=== PATIENT | female | born 1990 | race Caucasian/White ===

== ENCOUNTER → 2021-01-25 17:22 | Outpatient (CLI) | payer OTHER, SELFPAY ==
[2021-01-25 19:17] LABS: HCG Quantitative /Beta subunit 23679 mIU/mL
== END ==
PROVIDERS: PCP Registered Nurse Diabetes Educator; Referring Provider Obstetrics & Gynecology; Visit Provider Obstetrics & Gynecology
DX: O02.0 Blighted ovum and nonhydatidiform mole (principal)
CPT/HCPCS: 36415; 84702

== ENCOUNTER → 2021-01-27 16:45 | Outpatient (CLI) | payer OTHER, SELFPAY ==
[2021-01-27 18:17] LABS: HCG Quantitative /Beta subunit 18959 mIU/mL
== END ==
PROVIDERS: PCP Registered Nurse Diabetes Educator; Referring Provider Obstetrics & Gynecology; Visit Provider Obstetrics & Gynecology
DX: Z34.90 Encounter for supervision of normal pregnancy, unspecified, unspecified trimester (principal)
CPT/HCPCS: 36415; 84702

== ENCOUNTER → 2021-02-01 16:35 | Outpatient (CLI) | payer OTHER, SELFPAY | PROVIDERS: PCP Registered Nurse Diabetes Educator; Referring Provider Obstetrics & Gynecology; Visit Provider Obstetrics & Gynecology | DX: Z34.01 Encounter for supervision of normal first pregnancy, first trimester (principal) | CPT/HCPCS: 36415; 86850; 86900; 86901 ==

== ENCOUNTER 2022-05-17 00:44 | Inpatient (IN) | payer OTHER, SELFPAY ==
--- NOTE | 2022-05-17 01:28 | P.HPOB_ITS ---
OB HPI Date/Time Date of admission: 05/17/22 Date Patient Seen: 05/17/22 Time Patient Seen: 01:28 History of Present Condition Chief complaint: LABOR : 1 Para: 0 Estimated Date of Delivery: 05/22/22 Estimated Gestational Age (weeks): 39.2 Narrative: Miesha Sethi is a 31 year old female @ [id number] by 7wk US presents for evaluation f labor. Contractions started last night and have steadily increased in frequency and intensity. Now Q2-3 minutes and strong. Coping well. +FM. No vaginal bleeding or leaking of fluid. Uncomplicated care with CNM. Chronic anxiety and depression well managed with Wellbutrin. Desires low intervention . and sporting goods sales associate are present and supportive. History of Present care: good care, initiated at week # (7), number of visits (10) and pounds weight gain (36) Dating criteria: based on 1st trimester US only Ultrasounds: normal mid trimester US Obstetrical complications: none Medical complications: none Preadmission Labs Blood type: A (+) positive -: Antibody screen: negative, GBS status: positive, HBsAG: negative, HIV: negative and RPR/VDLR: negative -: Chlamydia screen: not detected and Gonorrhea screen: not detected -: Rubella: immune and Varicella: immune HCT: 36.3 HCAB: negative Cell-free DNA: Negative 1 hr GTT: 101 Evaluation Evaluation Baseline heart rate: 135 Variability: Moderate (11-25) monitor accelerations: Present Monitor Decelerations: Absent Contraction Frequency (minutes): 3 Uterine Contraction Intensity: Moderate Status: Category l Dilation (cm): 6 Effacement (%): 100 Dilation: >/=5 cm Effacement: >/=80% station: -1 Position of cervix: mid Consistency: soft Toussaint score: 11 [facility] Medical History Anxiety (~2007) Chronic back pain (~2012) Depression (~2007) Dyspareunia (~2008) Fibromyalgia (~2012) Frequent UTI (~2008) GERD (gastroesophageal reflux disease) (~2007) IBS (irritable bowel syndrome) (~2007) Migraines (~2010) Pelvic floor dysfunction (~2007) Seasonal allergies (~2005) Urinary urgency (~2008) Vaginitis Surgical History Gustine teeth extracted (~2009) Family History Mother labor in second trimester with delivery in third trimester Depression Father No problems noted. Grandmother Hypertension Pacemaker labor in second trimester with delivery in third trimester Grandfather Hemorrhagic stroke Grandmother No problems noted. Grandfather Bone cancer Pneumonia Stroke Hypertension Social History marital status: number of children: 0 household members: spouse lives independently: Yes caregiver/support person: No housing: house pets and animals: Yes (2 cats: cleaning litter box, aware. 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 ) shereen/confucianism: Non-roman catholic special shereen needs: No leisure activities: other (painting, sewing, art.) seatbelt use: always water heater temp set < 120 deg: Yes working smoke detector in home: Yes fire extinguisher in home: No carbon monox detector in home: Yes firearms in home: Yes firearms unloaded and locked: Yes do you feel safe at home: Yes Smoking Status: Never smoker second hand exposure: No alcohol intake: never (Does not drink, seems to not mix with Wellbutrin. ) substance use type: does not use during the past year weight has: decreased > 10 lbs well-balanced diet: about half the time daily servings fruits/ve-4 caffeine: Yes (Quit - just doing decaf. ) Type(s) of exercise: walking and other ( pilates DVD once a week. Stretches from PT. ) frequency: 3-4 times per week duration: 15-30 minutes/day Meds Home Medications and Allergies Home Medications Medication Instructions Recorded Confirmed Type lactobacillus combo no.13 1 1 cap PO DAILY 10/07/20 01/11/22 History billion cell capsule,delayed release (Probiotic Pearls Complete) calcium carbonate 300 mg (750 mg) 300 mg PO BID 01/08/21 01/11/22 History chewable tablet (Tums) prenat.vits,camila,vuv-mfuk-tymwh 1 tab PO DAILY 01/08/21 01/11/22 History bupropion HCl 150 mg 24 hr tablet, 150 mg PO QAM #90 tabs 01/11/22 01/11/22 Rx extended release cimetidine 200 mg tablet (Tagamet 200 mg PO QAC PRN 01/11/22 01/11/22 History HB) Allergies Allergy/AdvReac Type Severity Reaction Status Date / Time house dust mite Allergy Intermediate sinus Verified 01/11/22 13:35 infections venom-wasp Allergy Intermediate Swelling, Verified 01/11/22 13:35 no anaphylaxis. grass pollen Allergy Mild Itchy eyes Verified 01/11/22 13:35 Review of Systems Review of Systems ROS: Yes All systems reviewed with the patient and are negative except as otherwise documented OB Exam Narrative Exam Narrative: VS: BP 145/87, HR 107bpm, T 36.4C Temporal Resp Effort & Inspection: normal respiratory effort and able to speak in complete sentences Auscultation: clear to auscultation bilaterally Cardio Rate: regular rate Rhythm: regular rhythm Presentation: vertex Assessment and Plan Assessment and Plan Assessment and Plan narrative: A: Term nullipara Active labor GBS prophylaxis indicated Cat I FHR P: Admit, routine orders with ampicillin for GBS prophylaxis. Labor support PRN. Reassess in 4 hours or sooner, PRN.
[2022-05-17] MEDS: AMPICILLIN 2,000 MG in SODIUM CHLORIDE 0.9% 100 ML 200 MG IV (01:36)
[2022-05-17] MEDS: LACTATED RINGERS 1,000 ML 100 ML IV ×2 (01:36→15:21)
[2022-05-17 01:41] LABS: Add Manual Diff / Slide Review NO; Basophils Absolute Auto 100 /uL (0-100); Basophils Percent Auto 0.7 % (0-2); Eosinophils Absolute Auto 100 /uL (0-450); Eosinophils Percent Auto 0.4 % (2-4); Hematocrit 39.7 % (36-46); Hemoglobin 12.8 g/dL (12.0-16.0); Lymphocytes Absolute Auto 1700 /uL (1100-4500); Lymphocytes Percent Auto 13.1 % (25-40); Mean Corpuscular HGB Conc 32.3 % (30-36); Mean Corpuscular Hemoglobin 28.5 PG (26-34); Mean Corpuscular Volume 88.1 fL (80-100); Monocytes Absolute Auto 900 /uL (0-900); Monocytes Percent Auto 6.5 % (3-14); Neutrophils Absolute Auto 10300 /uL (1500-7000); Neutrophils Percent Auto 79.3 % (50-75); Platelet Count 249 X10^3/uL (150-400); Red Blood Cell Count 4.51 X10^6/uL (4.0-5.2); Red Cell Distribution Width 14.8 % (11.6-14.8)
[2022-05-17 01:52] LABS: Aspartate Aminotransferase 19 IU/L (14-36); Blood Urea Nitrogen 7 mg/dL (7-17); Estimated Glomerular Filt Rate > 60 mL/min (>60); Uric Acid 3.3 mg/dL (2.5-6.2)
[2022-05-17 01:59] LABS: COVID19 -Nasal RAPID Negative (Negative)
[2022-05-17 02:54] LABS: Protein (Total) Urine Random 14 mg/dL (0-12)
[2022-05-17 02:56] LABS: Creatinine Urine Random 40.9 mg/dL; Protein Creatinine Ratio Urine 0.34 GRAM/24H
--- NOTE | 2022-05-17 06:10 | PM.OBPNLAB ---
Date/Time Date Patient Seen: 05/17/22 Time Patient Seen: 06:11 Pain Control Pain control: tolerating well Comments: Breathing through strong contractions every 2-3 minutes. Has been changing positions frequently and is currently upright, standing and rocking. VS: BP 143/92mmHg, HR 118bpm, T 36.0C Temporal Pelvic Exam Dilation (cm): 8 Effacement (%): 100 station: -1 Amniotic membrane status: Intact Contractions Pitocin rate (mU/min): 0 Contraction frequency (min): 2 Contraction duration (min): 1 Contraction pattern: Regular Contraction intensity: Moderate Status status: Category l Heart Rate Baseline: 135 Monitor Accelerations: Present Monitor Decelerations: Absent Monitor Variability: Moderate Assessment and Plan Assessment: active labor Plan: continuous present management Comments: Continue expectant management. Anticipate second stage soon. Reassess in 2-4 hours or sooner, PRN pressure/pushing.
[2022-05-17] MEDS: AMPICILLIN 1,000 MG in SODIUM CHLORIDE 0.9% 100 ML 200 MG IV ×5 (06:11→18:13)
--- NOTE | 2022-05-17 08:55 | PM.OBPNLAB ---
Date/Time Date Patient Seen: 05/17/22 Time Patient Seen: 08:55 Pain Control Pain control: tolerating well Comments: Continues to cope well with unmedicated labor. SROM for clear fluid occurred at 0400. Has been changing positions frequently and is a little frustrated with lack of progression. No headache, vision changes, RUQ pain. Minimal edema. Preeclampsia labs came back with elevated Pr:Cr- 0.34 and patient was counseled on diagnosis of preeclampsia. VS: BP 145/78mmhg, HR 110bpm, T 36.7C Temporal Pelvic Exam Dilation (cm): 8 Effacement (%): 100 station: -1 Amniotic membrane status: Leaking (clear) Comments: AROM forebag performed for moderate clear fluid Contractions Monitor mode: External Pitocin rate (mU/min): 0 Contraction frequency (min): 2 Contraction pattern: Regular Contraction intensity: Moderate Status status: Category l Heart Rate Baseline: 130 Monitor Accelerations: Present Monitor Decelerations: Absent Monitor Variability: Moderate Comments: poor continuity of tracing d/t maternal movement Assessment and Plan Assessment: active labor and other (preeclampsia) Plan: begin patient augmentation (AROM of forebag) Comments: Continue labor support and position changes. Reassess in 4 hours or sooner, PRN.
--- NOTE | 2022-05-17 11:41 | PM.OBPNLAB ---
Date/Time Date Patient Seen: 05/17/22 Time Patient Seen: 11:41 Pain Control Pain control: tolerating well (considering NO2) Comments: Contractions intensified after AROM of forebag. Noticed some bloody show while in the shower. Has continued to labor well. Pelvic Exam Dilation (cm): 9 Effacement (%): 100 station: -1 Amniotic membrane status: Leaking (clear) Comments: LOP and anterior acynclitic Contractions Monitor mode: External Pitocin rate (mU/min): 0 Contraction frequency (min): 3 Contraction duration (min): 1 Contraction pattern: Regular Contraction intensity: Moderate Status status: Category l Heart Rate Baseline: 135 Monitor Accelerations: Present Monitor Decelerations: Absent Monitor Variability: Moderate Assessment and Plan Assessment: active labor Plan: continuous present management Comments: Recommend Miles circuit to promote rotation and descent. Reassess in 2 hours or sooner, PRN.
--- NOTE | 2022-05-17 13:48 | PM.OBPNLAB ---
Date/Time Date Patient Seen: 05/17/22 Time Patient Seen: 13:40 Pain Control Pain control: tolerating well Comments: Has been laboring in the shower and has completed Miles circuit with no significant change in pelvic pressure, requesting a cervical exam. VS: BP 131/91mmHg, HR 111bpm, T 36.2C temporal Pelvic Exam Dilation (cm): 9 Effacement (%): 100 station: -1 Amniotic membrane status: Leaking (clear) Comments: LOP presentation Contractions Monitor mode: External Pitocin rate (mU/min): 0 Contraction frequency (min): 3 Contraction pattern: Regular Contraction intensity: Moderate Status status: Category l Heart Rate Baseline: 130 Monitor Accelerations: Present Monitor Decelerations: Absent Assessment and Plan Assessment: active labor (slow progress) Comments: Counseled on malpresentation and no descent with expectant management of labor and every position change. Counseled on recommendation for epidural and option for manual rotation and patient is in agreement. Will consult anesthesia.
[2022-05-17] MEDS: FENT 2MCG/ML BUPIV 0.125% EPI 200 MCG/100 ML PLAST..BAG 8 MCG EPIDURAL (15:19)
--- NOTE | 2022-05-17 15:43 | PM.OBPNLAB ---
Date/Time Date Patient Seen: 05/17/22 Time Patient Seen: 15:43 Pain Control Pain control: epidural Comments: Now comfortable with an epidural and consents to a manual rotation of the fetus. VS: BP 140/84mmHg, HR 118bpm, T 36.6C temporal Pelvic Exam Dilation (cm): 9 Effacement (%): 100 station: -1 Amniotic membrane status: Leaking (clear) Comments: LOP Contractions Monitor mode: External Contraction frequency (min): 3 Contraction pattern: Regular Contraction intensity: Moderate Status status: Category l Heart Rate Baseline: 145 Monitor Accelerations: Absent Monitor Decelerations: Absent Monitor Variability: Moderate Assessment and Plan Assessment: active labor (slow progress) Comments: Verified LOP by US. Patient assisted to knee chest position and provider's left hand was utilized to elevate the head of the fetus and rotate to LYDIA and assist in flexion and held there during descent to -2 station. Will start pitocin augmentation and recheck in 1-2 hours. Will consult OB if no change at that time.
[2022-05-17] MEDS: OXYTOCIN PREMIX 30 UNIT/500 ML PLAST..BAG IV (15:55)
[2022-05-17] MEDS: TRANEXAMIC ACID 1,000 MG in SODIUM CHLORIDE 0.9% 100 ML 200 MG IV (19:25)
[2022-05-17] MEDS: miSOPROStoL 200 MCG TABLET 800 MCG PR (19:30)
--- NOTE | 2022-05-17 19:41 | PM.OBPRVD ---
Events: Labor Augmentation Labor & Delivery Delivery date: 05/17/22 Intrapartal Events: Prolonged Active Phase, Febrile, Mild Preeclampsia and Abnormal Presentation Cervical ripening method: none Induction method: none Delivery augmentation: pitocin Delivery monitor: external FHT and internal uterine Route of delivery: L&D Laceration Description: Perineal - 2nd Degree Delivery repair: chromic (3.0) Anesthesia Type: Epidural Narrative: After 1 hour of laboring down with pitocin augmentation (max dose 6mu/min), patient was encouraged to push at C/C/0. Strong maternal efforts and coaching led to steady descent of vertex. NSVB of a viable baby boy in NARDA position. There was no nuchal cord. Given tight delivery of the face, McRobert's was used for pushing of the shoulders. No other maneuvers were used. [place] was placed on maternal abdomen for drying and stimulation. After cessation of pulsation, the cord was double clamped by CNM and cut by FOB. Remaining 30 units of pitocin in 500mL LR was started at 250mL/hr. Gentle cord traction and single maternal push led to spontaneous, Schultze dleivery of an apparently intact placenta, membranes and 3VC. Fundus immediately firm and bleeding minimal. A short 2nd degree perineal laceration was repiared with 3.0 chromic in the usual fashion, under adequate epidural anesthesia. QBL 300mL. Both mother an dbaby stable and skin to skin. Shortly after leaving the room, CNM was called back in for heavy bleeding. Fundus was firm and large clots expressed. TXA and misoprostil given. Bleeding decreased to scant and fundus remained firm. additional QBL 414mL. Total QBL 714mL. Baby 1: Infant gender: Male Presentation: vertex Position: Right Occiput Anterior Placenta delivery description: Spontaneous Cord Vessel Description: 3 Vessels score (1 min): 8 score (5 min): 9 weight: 3.438 kg Plan for aftercare: Routine care
[2022-05-17] MEDS: KETOROLAC 30 MG/ML VIAL IV (22:10)
[2022-05-17] MEDS: ACETAMINOPHEN 325 MG TABLET 650 MG PO (22:10)
[2022-05-18 08:02] LABS: Add Manual Diff / Slide Review NO; Basophils Absolute Auto 0 /uL (0-100); Basophils Percent Auto 0.3 % (0-2); Eosinophils Absolute Auto 100 /uL (0-450); Eosinophils Percent Auto 0.9 % (2-4); Hematocrit 32.7 % (36-46); Hemoglobin 10.9 g/dL (12.0-16.0); Lymphocytes Absolute Auto 2000 /uL (1100-4500); Lymphocytes Percent Auto 13.6 % (25-40); Mean Corpuscular HGB Conc 33.5 % (30-36); Mean Corpuscular Hemoglobin 29.2 PG (26-34); Mean Corpuscular Volume 87.1 fL (80-100); Monocytes Absolute Auto 1000 /uL (0-900); Monocytes Percent Auto 6.7 % (3-14); Neutrophils Absolute Auto 11500 /uL (1500-7000); Neutrophils Percent Auto 78.5 % (50-75); Platelet Count 193 X10^3/uL (150-400); Red Blood Cell Count 3.75 X10^6/uL (4.0-5.2); Red Cell Distribution Width 14.2 % (11.6-14.8); White Blood Cell Count 14.7 X10^3/uL (4.5-11.0)
[2022-05-18] MEDS: DOCUSATE 100 MG CAPSULE PO (08:36)
[2022-05-18] MEDS: IBUPROFEN 600 MG TABLET PO ×2 (08:36→17:18)
--- NOTE | 2022-05-18 09:09 | PM.OBDS.1 ---
Discharge Providers Provider Date of admission: 05/17/22 00:44 Discharge Date: 05/18/22 Primary care physician: SHERI Hills Consults: 05/18/22 19:14 Consult to Marine Cargo Surveyor Routine Comment: Discharge provider: Almaz Hurley CNM Summary Hospital Course Date Patient Seen: 05/18/22 Time Patient Seen: 09:10 Diagnoses: O70.1 Hospital Course: PPD1: stable s/p NSVB with 2nd degree perineal laceration. Peripartum Data Delivery Method: Natural Vaginal Laceration Description: Perineal - 2nd Degree Episiotomy description: None complications: none 1: Gender: Male Disposition of : home Status at Discharge Cognitive/behavioral status at discharge: oriented and calm Functional status at discharge: independent ambulation Overall status at discharge: patient is progressing back to baseline Time Spent with Patient Time attestation: Total time spent providing and/or coordinating discharge services: Objective Labs Result Diagrams: 05/18/22 07:28 05/17/22 01:29 Labs: Laboratory Results - last 24 hr 05/18/22 07:28 WBC 14.7 H RBC 3.75 L Hgb 10.9 L Hct 32.7 L MCV 87.1 MCH 29.2 MCHC 33.5 RDW 14.2 Plt Count 193 Neut % (Auto) 78.5 H Lymph % (Auto) 13.6 L Glasscock % (Auto) 6.7 Eos % (Auto) 0.9 L Baso % (Auto) 0.3 Neut # (Auto) 67430 H Lymph # (Auto) 2000 Glasscock # (Auto) 1000 H Eos # (Auto) 100 Baso # (Auto) 0 Exam Vital Signs (past 8 hours): BP 118/72mmHg, HR 100bpm, T 35.9C Temporal Other: Fundus firm @ U-2, lochia scant. Perineum with mild edema. Discharge Plan Discharge Plan Patient Disposition: Home Discharge orders & Medications Prescriptions: New ibuprofen 600 mg Tablet 600 mg PO Q6HR PRN (Reason: Pain, Mild (1-3)) 14 Days Qty: 60 0RF Continued Probiotic Pearls Complete 1 billion cell capsule,delayed release(DR/EC) 1 cap PO DAILY prenat.vits,camila,spq-aemo-veeod Tablet 1 tab PO DAILY bupropion HCl 150 mg tablet extended release 24 hr 150 mg PO QAM Qty: 90 3RF Discontinued cimetidine [Tagamet HB] 200 mg tablet 200 mg PO QAC PRN (Reason: Acid Reflux) Follow up/Referrals: Dale Petersen ARNP [Primary Care Provider] - Almaz Hurley CNM [Advanced Farm Machine Operator] - (Follow-up in office 05/25/22 @ 3pm for BP check Follow-up by phone 05/31/22 @ 3:45pm Follow-up in office 06/28/21 @ 9am) Diet/Activity/Treatments Diet: Regular Activity: pelvic rest x 6 weeks Skin/Wound/Dressing Care Report to your healthcare provider any signs of infection, such as:: chills, fever, increased pain, unusual drainage and unusual redness Visit Report/Discharge Packet Instructions: DI for Depression Discharge Data Primary Care Provider: Dale Petersen
== END 2022-05-18 18:29 | disposition home or self-care (01) | DRG 807 ==
PROVIDERS: Admitting Provider Nurse Practitioner Obstetrics & Gynecology; PCP Registered Nurse Diabetes Educator; Referring Provider Nurse Practitioner Obstetrics & Gynecology; Visit Provider Nurse Practitioner Obstetrics & Gynecology
DX: O99.824 Streptococcus B carrier state complicating childbirth (principal); Z37.0 Single live birth; O32.8XX0 Maternal care for other malpresentation of fetus, not applicable or unspecified; O63.1 Prolonged second stage (of labor); O14.04 Mild to moderate pre-eclampsia, complicating childbirth; O99.344 Other mental disorders complicating childbirth; F41.9 Anxiety disorder, unspecified; F32.A Depression, unspecified; O70.1 Second degree perineal laceration during delivery; Z3A.39 39 weeks gestation of pregnancy; Z20.822 Contact with and (suspected) exposure to COVID-19
CPT/HCPCS: 36415; 59050; 82570; 84156; 84450; 84550; 85025; 86850; 86900; 86901; 87635; C9803; G0379; J0290; J1885; J2590; S0191

== ENCOUNTER → 2022-09-22 14:20 | Outpatient (CLI) | payer OTHER, SELFPAY ==
[2022-09-22 15:14] LABS: Influenza A - CEPHEID Flu A NEGATIVE (NEGATIVE); Influenza B - CEPHEID Flu B NEGATIVE (NEGATIVE); Respiratory Syncytial Virus Negative (Negative)
[2022-09-22 15:45] LABS: COVID-19 CEPHEID 4-PLEX PCR Negative (Negative)
== END ==
PROVIDERS: Family Provider Registered Nurse Diabetes Educator; PCP Registered Nurse Diabetes Educator; Visit Provider Registered Nurse Diabetes Educator
DX: U07.1 COVID-19 (principal)
CPT/HCPCS: 0241U

== ENCOUNTER 2023-01-03 12:00 | Outpatient (RCR) | payer OTHER, SELFPAY ==
--- NOTE | 2022-08-09 15:46 | PT.OPPOC ---
Physical, Occupational & Speech Therapy At [facility] Current Diagnoses Dyspareunia not due to a substance or known physiological condition (08/09/22) Other specified disorders of muscle (08/09/22) Stress incontinence (female) (male) (08/09/22) Rectocele (08/09/22) Visit Care Team Role Provider Type SHERI Hills Attending Provider Advanced Custom Shoe Designer And Maker Family Provider Primary Care Provider Referring Provider Specialty: Medical Address: [address] [place] [address], [facility] Email: [email or web address] Plan Of Care PT-OP-T Assessment and Plan Start: 08/05/22 14:57 Freq: Status: Active Protocol: Document 08/09/22 13:00 AMB (Rec: 08/16/22 11:16 AMB [id number]) Physical Therapy Assessment Rehab Potential Rehabilitation Potential Good Evaluation Complexity Number of Personal Factors/Comorbidities 3 or More Number of Body Systems Impaired 3 Clinical Presentation at Evaluation Evolving Impairments Impairments Activity Tolerance,Pain, Strength Goals Dyspareunia Support Services Manager Goal (LTG) Miesha will engage in the intercourse of her choice with 1/10 pain or less. LTG Duration 12 weeks Two Impairment Bowel movements Short Term Goal (STG) Miesha will improve the consistency of her bowel movements to 2-3 on the bristol stool scale. STG Duration 4 weeks Snf Goal (LTG) Miesha will report no greater than 2/10 pain with bowel movements. LTG Duration 8 weeks One Impairment Stress urinary incontinence Short Term Goal (STG) Miesha will be independent with a HEP to help improve her pelvic floor strength. STG Duration 4 weeks Snf Goal (LTG) Miesha will cough without leaking urine. LTG Duration 8 weeks Assessment Summary Assessment Miesha presents with a long history of pelvic pain that had previously benefited from pelvic floor physical therapy, but now is worse after vaginal childbirth 3 months ago. She does present with rectocele, poor pelvic floor strength and difficulty relaxing after trying to contract. She does have tension and pain at bilateral levator ani and obterator muscles. She will benefit from physical therapy to help her work to reduce both her pelvic floor tension to allow better bowel movements as well as less painful intercourse. Physical Therapy Plan Frequency and Duration Frequency of Treatment 1x/Week Duration of treatment (weeks) 12 Plan of Care Start Date 08/09/22 Plan of Care End Date 11/01/22 Therapeutic Interventions Therapeutic Interventions Home Exercise Program,Manual Therapy,Neuromuscular Re- education,Self-Care/Home Management,Therapeutic Activities,Therapeutic Exercises Modalities Biofeedback,Cold Pack/Ice Massage,Electric Stimulation Next Visit Focus/Plan Next Note Type Treatment Note Next Visit Plan Manual to release pelvic floor muscles, sEMG for working on relaxing and strengthening pelvic floor muscles, work to reduce constipation Plan of Care Dates Plan of Care Start Date 08/09/22 Plan of Care End Date 11/01/22 Electronically Signed by: Maris Lawrence, PT 08/16/22 [id number] If you are in agreement with this Plan of Care, please return a signed and dated copy. I have reviewed this Plan of Care and certify that the skilled therapy services above are required to meet the patient?s needs. Physician Signature Date Printed Name and Credentials Clinical Instructor Signature Printed Name and Credentials
--- NOTE | 2022-08-09 15:46 | PT.OIE ---
Current Diagnoses Dyspareunia not due to a substance or known physiological condition (08/09/22) Other specified disorders of muscle (08/09/22) Stress incontinence (female) (male) (08/09/22) Rectocele (08/09/22) Past Medical History (Last Reviewed 05/17/22 @ 01:36 by Almaz Hurley CNM) Anxiety (~2007) Chronic back pain (~2012) Depression (~2007) Dyspareunia (~2008) Fibromyalgia (~2012) Frequent UTI (~2008) GERD (gastroesophageal reflux disease) (~2007) IBS (irritable bowel syndrome) (~2007) Migraines (~2010) Pelvic floor dysfunction (~2007) Seasonal allergies (~2005) Urinary urgency (~2008) Vaginitis Past Surgical History (Last Reviewed 05/17/22 @ 01:36 by Almaz Hurley CNM) [place] teeth extracted (~2009) Visit Care Team Role Provider Type SHER[place] 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 Family Provider Primary Care Provider Referring Provider Specialty: Medical Address: [address] [place] [address] Email: [email or web address] Physical Therapy Initial Evaluation PT-OP-A Visit Information Start: 08/05/22 14:57 Freq: Status: Active Protocol: Document 08/09/22 13:08 AMB (Rec: 08/09/22 13:30 AMB [id number]) Out-Patient Physical Therapy Visit Information Visit Information Visit Type Initial Evaluation Visit Start Time 13:00 Visit Stop Time 13:45 Total Visit Minutes 45 Visit Number 1 PT-OP-B Current Condition Start: 08/05/22 14:57 Freq: Status: Active Protocol: Document 08/09/22 13:08 AMB (Rec: 08/09/22 13:30 AMB [id number]) Current Condition History of Current Condition Onset Date May 2023 Current Complaints Pelvic pain, SHAW History of Current Condition Miesha has a long history of pelvic pain with urgency and felt that again after most recent time with intercourse for 3 days pain was present. Pain is worse after childbirth 3 months ago. Describes vaginal pressure. Chronic constipation. Pain after bowel movements, variable 30minutes-3 hours. [place] stool scale 1-2, daily bowel movements. Does have IBS with some fecal urgency but even with that has formed stools. Vaginal , did tear thinks second degree, some tenderness at scar. Overall hoping to work on pelvic floor pain with bowel movements and intercourse. Reports mild SHAW. Treatment Goals Patient/Caregiver Goals Reduce pelvic pain with intercourse and bowel movements. Personal Factors Other Personal Factors That May Effect Hx fibromyalgia, back pain, Therapy/Recovery neck pain, depression PT-OP-C Subjective Start: 08/05/22 14:57 Freq: Status: Active Protocol: Document 08/09/22 13:00 AMB (Rec: 08/09/22 15:53 AMB [id number]) OP-PT Subjective Patient Comments Patient Comments /10 pain Patient Questionnaires Pelvic Pain and Urgency/Frequency Patient Symptom Scale Pelvic Pain Score 17 PT-OP-I Pelvic Floor Start: 08/05/22 14:57 Freq: Status: Active Protocol: Document 08/09/22 13:00 AMB (Rec: 08/09/22 15:58 AMB [id number]) Pelvic Floor Assessment Urine Pelvic Floor Surgery No Urinary Symptoms Urge Sensation,Pain Leakage Size Small Leakage Cause Cough,Sneeze Nocturia 2 Urine Pad Type Panty Liner Bowel Bowel Symptoms Constipation Bowel Movement Frequency 1/day [place] Stool Chart Type 1-7 1 Pelvic Clock Pelvic Clock 12-3 Hypertonic,Tenderness, Tightness Pelvic Clock Other mild tenderness over perineal scar Prolapse Uterine Prolapse Grade 1 Rectocele Grade 2 Contraction Ability Voluntary Contraction Weak Voluntary Relaxation Weak Manual Muscle Testing Posterior 1 Muscle Endurance (Seconds) 1 Number of Quick Contractions In 10 2 Seconds Comments Pelvic Floor Comments flickering contraction and difficult time relaxing after PT-OP-T Assessment and Plan Start: 08/05/22 14:57 Freq: Status: Active Protocol: Document 08/09/22 13:00 AMB (Rec: 08/16/22 11:16 AMB [id number]) Physical Therapy Assessment Rehab Potential Rehabilitation Potential Good Evaluation Complexity Number of Personal Factors/Comorbidities 3 or More Number of Body Systems Impaired 3 Clinical Presentation at Evaluation Evolving Impairments Impairments Activity Tolerance,Pain, Strength Goals Dyspareunia [facility] Goal (LTG) Miesha will engage in the intercourse of her choice with 1/10 pain or less. LTG Duration 12 weeks Two Impairment Bowel movements Short Term Goal (STG) Miesha will improve the consistency of her bowel movements to 2-3 on the bristol stool scale. STG Duration 4 weeks Electrician Deck Goal (LTG) Miesha will report no greater than 2/10 pain with bowel movements. LTG Duration 8 weeks One Impairment Stress urinary incontinence Short Term Goal (STG) Miesha will be independent with a HEP to help improve her pelvic floor strength. STG Duration 4 weeks Electrician Deck Goal (LTG) Miesha will cough without leaking urine. LTG Duration 8 weeks Assessment Summary Assessment Miesha presents with a long history of pelvic pain that had previously benefited from pelvic floor physical therapy, but now is worse after vaginal childbirth 3 months ago. She does present with rectocele, poor pelvic floor strength and difficulty relaxing after trying to contract. She does have tension and pain at bilateral levator ani and obterator muscles. She will benefit from physical therapy to help her work to reduce both her pelvic floor tension to allow better bowel movements as well as less painful intercourse. Physical Therapy Plan Frequency and Duration Frequency of Treatment 1x/Week Duration of treatment (weeks) 12 Plan of Care Start Date 08/09/22 Plan of Care End Date 11/01/22 Therapeutic Interventions Therapeutic Interventions Home Exercise Program,Manual Therapy,Neuromuscular Re- education,Self-Care/Home Management,Therapeutic Activities,Therapeutic Exercises Modalities Biofeedback,Cold Pack/Ice Massage,Electric Stimulation Next Visit Focus/Plan Next Note Type Treatment Note Next Visit Plan Manual to release pelvic floor muscles, sEMG for working on relaxing and strengthening pelvic floor muscles, work to reduce constipation
--- NOTE | 2022-08-17 13:25 | PT.OTN ---
Current Diagnoses Dyspareunia not due to a substance or known physiological condition (08/17/22) Other specified disorders of muscle (08/17/22) Stress incontinence (female) (male) (08/17/22) Rectocele (08/17/22) Physical Therapy Treatment Note PT-OP-A Visit Information Start: 08/05/22 14:57 Freq: Status: Active Protocol: Document 08/17/22 09:02 AMB (Rec: 08/17/22 09:47 AMB [id number]) Out-Patient Physical Therapy Visit Information Visit Information Visit Type Treatment Note Visit Start Time 09:00 Visit Stop Time 09:45 Total Visit Minutes 45 Visit Number 2 PT-OP-B Current Condition Start: 08/05/22 14:57 Freq: Status: Active Protocol: Document 08/09/22 13:08 AMB (Rec: 08/09/22 13:30 AMB [id number]) Current Condition History of Current Condition Onset Date May 2023 Current Complaints Pelvic pain, SHAW History of Current Condition Miesha has a long history of pelvic pain with urgency and felt that again after most recent time with intercourse for 3 days pain was present. Pain is worse after childbirth 3 months ago. Describes vaginal pressure. Chronic constipation. Pain after bowel movements, variable 30minutes-3 hours. [place] stool scale 1-2, daily bowel movements. Does have IBS with some fecal urgency but even with that has formed stools. Vaginal , did tear thinks second degree, some tenderness at scar. Overall hoping to work on pelvic floor pain with bowel movements and intercourse. Reports mild SHAW. Treatment Goals Patient/Caregiver Goals Reduce pelvic pain with intercourse and bowel movements. Personal Factors Other Personal Factors That May Effect Hx fibromyalgia, back pain, Therapy/Recovery neck pain, depression PT-OP-C Subjective Start: 08/05/22 14:57 Freq: Status: Active Protocol: Document 08/17/22 09:02 AMB (Rec: 08/17/22 09:47 AMB [id number]) OP-PT Subjective Patient Comments Patient Comments Was able to have sex without bad rebound pain, wondering if IBS is coming back, continues to have pain after bowel movements. PT-OP-I Pelvic Floor Start: 08/05/22 14:57 Freq: Status: Active Protocol: Document 08/09/22 13:00 AMB (Rec: 08/09/22 15:58 AMB [id number]) Pelvic Floor Assessment Urine Pelvic Floor Surgery No Urinary Symptoms Urge Sensation,Pain Leakage Size Small Leakage Cause Cough,Sneeze Nocturia 2 Urine Pad Type Panty Liner Bowel Bowel Symptoms Constipation Bowel Movement Frequency 1/day [place] Stool Chart Type 1-7 1 Pelvic Clock Pelvic Clock 12-3 Hypertonic,Tenderness, Tightness Pelvic Clock Other mild tenderness over perineal scar Prolapse Uterine Prolapse Grade 1 Rectocele Grade 2 Contraction Ability Voluntary Contraction Weak Voluntary Relaxation Weak Manual Muscle Testing Posterior 1 Muscle Endurance (Seconds) 1 Number of Quick Contractions In 10 2 Seconds Comments Pelvic Floor Comments flickering contraction and difficult time relaxing after PT-OP-Q Treatments Start: 08/05/22 14:57 Freq: Status: Active Protocol: Document 08/17/22 09:00 AMB (Rec: 08/18/22 13:23 AMB [id number]) Manual Therapy Treatment Soft Tissue Mobilization levator ani Mobilization Type Sustained Pressure,Trigger Point Release Intensity/Depth Moderate Body Position Hooklying Comments pt with good tolerance, more pain on the L encouraged softening, relaxing, letting go encouraged breathing PT-OP-T Assessment and Plan Start: 08/05/22 14:57 Freq: Status: Active Protocol: Document 08/17/22 09:02 AMB (Rec: 08/17/22 09:47 AMB [id number]) Physical Therapy Assessment Goals Dyspareunia Six Pack Packer Goal (LTG) Miesha will engage in the intercourse of her choice with 1/10 pain or less. LTG Duration 12 weeks Two Impairment Bowel movements Short Term Goal (STG) Miesha will improve the consistency of her bowel movements to 2-3 on the bristol stool scale. STG Duration 4 weeks Residential Goal (LTG) Miesha will report no greater than 2/10 pain with bowel movements. LTG Duration 8 weeks One Impairment Stress urinary incontinence Short Term Goal (STG) Miesha will be independent with a HEP to help improve her pelvic floor strength. STG Duration 4 weeks Six Pack Packer Goal (LTG) Miesha will cough without leaking urine. LTG Duration 8 weeks Assessment Summary Assessment L sided pain with manual more so than R. Did encourage in stretching, breath work, consider sEMG to work on softening and controlled strengthening in the future. Physical Therapy Plan Frequency and Duration Frequency of Treatment 1x/Week Duration of treatment (weeks) 12 Plan of Care Start Date 08/09/22 Plan of Care End Date 11/01/22 Therapeutic Interventions Therapeutic Interventions Home Exercise Program,Manual Therapy,Neuromuscular Re- education,Self-Care/Home Management,Therapeutic Activities,Therapeutic Exercises Modalities Biofeedback,Cold Pack/Ice Massage,Electric Stimulation Next Visit Focus/Plan Next Note Type Treatment Note Next Visit Plan Manual to release pelvic floor muscles, sEMG for working on relaxing and strengthening pelvic floor muscles, work to reduce constipation
--- NOTE | 2022-09-13 16:04 | PT.OTN ---
Current Diagnoses Dyspareunia not due to a substance or known physiological condition (09/13/22) Other specified disorders of muscle (09/13/22) Stress incontinence (female) (male) (09/13/22) Rectocele (09/13/22) Physical Therapy Treatment Note PT-OP-A Visit Information Start: 08/05/22 14:57 Freq: Status: Active Protocol: Document 09/13/22 14:36 AMB (Rec: 09/13/22 16:04 AMB [id number]) Out-Patient Physical Therapy Visit Information Visit Information Visit Type Initial Evaluation Visit Start Time 14:30 Visit Stop Time 15:15 Total Visit Minutes 45 Visit Number 3 PT-OP-B Current Condition Start: 08/05/22 14:57 Freq: Status: Active Protocol: Document 08/09/22 13:08 AMB (Rec: 08/09/22 13:30 AMB [id number]) Current Condition History of Current Condition Onset Date May 2023 Current Complaints Pelvic pain, SHAW History of Current Condition Miesha has a long history of pelvic pain with urgency and felt that again after most recent time with intercourse for 3 days pain was present. Pain is worse after childbirth 3 months ago. Describes vaginal pressure. Chronic constipation. Pain after bowel movements, variable 30minutes-3 hours. [place] stool scale 1-2, daily bowel movements. Does have IBS with some fecal urgency but even with that has formed stools. Vaginal , did tear thinks second degree, some tenderness at scar. Overall hoping to work on pelvic floor pain with bowel movements and intercourse. Reports mild SHAW. Treatment Goals Patient/Caregiver Goals Reduce pelvic pain with intercourse and bowel movements. Personal Factors Other Personal Factors That May Effect Hx fibromyalgia, back pain, Therapy/Recovery neck pain, depression PT-OP-C Subjective Start: 08/05/22 14:57 Freq: Status: Active Protocol: Document 09/13/22 14:36 AMB (Rec: 09/13/22 16:04 AMB [id number]) OP-PT Subjective Patient Comments Patient Comments Decreasing frequency and intensity of pain with bowel movements, has been able to have sex, is noticing back pain is more frequent and leaking is more frequent. PT-OP-I Pelvic Floor Start: 08/05/22 14:57 Freq: Status: Active Protocol: Document 08/09/22 13:00 AMB (Rec: 08/09/22 15:58 AMB [id number]) Pelvic Floor Assessment Urine Pelvic Floor Surgery No Urinary Symptoms Urge Sensation,Pain Leakage Size Small Leakage Cause Cough,Sneeze Nocturia 2 Urine Pad Type Panty Liner Bowel Bowel Symptoms Constipation Bowel Movement Frequency 1/day [place] Stool Chart Type 1-7 1 Pelvic Clock Pelvic Clock 12-3 Hypertonic,Tenderness, Tightness Pelvic Clock Other mild tenderness over perineal scar Prolapse Uterine Prolapse Grade 1 Rectocele Grade 2 Contraction Ability Voluntary Contraction Weak Voluntary Relaxation Weak Manual Muscle Testing Posterior 1 Muscle Endurance (Seconds) 1 Number of Quick Contractions In 10 2 Seconds Comments Pelvic Floor Comments flickering contraction and difficult time relaxing after PT-OP-Q Treatments Start: 08/05/22 14:57 Freq: Status: Active Protocol: Document 09/13/22 14:36 AMB (Rec: 09/13/22 16:04 AMB [id number]) Therapeutic Exercises Supine Exercises bent leg fall out Reps/Minutes 10 Comments cue TA and pelvic floor table top Reps/Minutes 10 Comments cue TA and pelvic floor- challenging Manual Therapy Treatment Taping abdomen Comments for diastasis PT-OP-T Assessment and Plan Start: 08/05/22 14:57 Freq: Status: Active Protocol: Document 09/13/22 14:36 AMB (Rec: 09/13/22 16:04 AMB [id number]) Physical Therapy Assessment Goals Dyspareunia Retirement Goal (LTG) Miesha will engage in the intercourse of her choice with 1/10 pain or less. LTG Duration 12 weeks Two Impairment Bowel movements Short Term Goal (STG) Miesha will improve the consistency of her bowel movements to 2-3 on the bristol stool scale. STG Duration 4 weeks Recycling Operator Goal (LTG) Miesha will report no greater than 2/10 pain with bowel movements. LTG Duration 8 weeks One Impairment Stress urinary incontinence Short Term Goal (STG) Miesha will be independent with a HEP to help improve her pelvic floor strength. STG Duration 4 weeks Recycling Operator Goal (LTG) Miesha will cough without leaking urine. LTG Duration 8 weeks Assessment Summary Assessment Pain is improving. Leaking and weakness are a bigger issue now. Encouraged in gentle strengthening for now, avoiding excessive pressure on the pelvic floor. Physical Therapy Plan Frequency and Duration Frequency of Treatment 1x/Week Duration of treatment (weeks) 12 Plan of Care Start Date 08/09/22 Plan of Care End Date 11/01/22 Therapeutic Interventions Therapeutic Interventions Home Exercise Program,Manual Therapy,Neuromuscular Re- education,Self-Care/Home Management,Therapeutic Activities,Therapeutic Exercises Modalities Biofeedback,Cold Pack/Ice Massage,Electric Stimulation Next Visit Focus/Plan Next Note Type Treatment Note Next Visit Plan Manual to release pelvic floor muscles, sEMG for working on relaxing and strengthening pelvic floor muscles, work to reduce constipation
--- NOTE | 2022-09-21 14:34 | PT.OTN ---
Current Diagnoses Dyspareunia not due to a substance or known physiological condition (09/21/22) Other specified disorders of muscle (09/21/22) Stress incontinence (female) (male) (09/21/22) Rectocele (09/21/22) Physical Therapy Treatment Note PT-OP-A Visit Information Start: 08/05/22 14:57 Freq: Status: Active Protocol: Document 09/21/22 12:57 AMB (Rec: 09/21/22 13:49 AMB [id number]) Out-Patient Physical Therapy Visit Information Visit Information Visit Type Treatment Note Visit Start Time 13:00 Visit Stop Time 13:45 Total Visit Minutes 45 Visit Number 4 PT-OP-B Current Condition Start: 08/05/22 14:57 Freq: Status: Active Protocol: Document 08/09/22 13:08 AMB (Rec: 08/09/22 13:30 AMB [id number]) Current Condition History of Current Condition Onset Date May 2023 Current Complaints Pelvic pain, SHAW History of Current Condition Miesha has a long history of pelvic pain with urgency and felt that again after most recent time with intercourse for 3 days pain was present. Pain is worse after childbirth 3 months ago. Describes vaginal pressure. Chronic constipation. Pain after bowel movements, variable 30minutes-3 hours. [place] stool scale 1-2, daily bowel movements. Does have IBS with some fecal urgency but even with that has formed stools. Vaginal , did tear thinks second degree, some tenderness at scar. Overall hoping to work on pelvic floor pain with bowel movements and intercourse. Reports mild SHAW. Treatment Goals Patient/Caregiver Goals Reduce pelvic pain with intercourse and bowel movements. Personal Factors Other Personal Factors That May Effect Hx fibromyalgia, back pain, Therapy/Recovery neck pain, depression PT-OP-C Subjective Start: 08/05/22 14:57 Freq: Status: Active Protocol: Document 09/21/22 12:57 AMB (Rec: 09/21/22 13:49 AMB [id number]) OP-PT Subjective Patient Comments Patient Comments Pt had illness that last week. 2x leaking with sneeze in the last week. PT-OP-I Pelvic Floor Start: 08/05/22 14:57 Freq: Status: Active Protocol: Document 08/09/22 13:00 AMB (Rec: 08/09/22 15:58 AMB [id number]) Pelvic Floor Assessment Urine Pelvic Floor Surgery No Urinary Symptoms Urge Sensation,Pain Leakage Size Small Leakage Cause Cough,Sneeze Nocturia 2 Urine Pad Type Panty Liner Bowel Bowel Symptoms Constipation Bowel Movement Frequency 1/day [place] Stool Chart Type 1-7 1 Pelvic Clock Pelvic Clock 12-3 Hypertonic,Tenderness, Tightness Pelvic Clock Other mild tenderness over perineal scar Prolapse Uterine Prolapse Grade 1 Rectocele Grade 2 Contraction Ability Voluntary Contraction Weak Voluntary Relaxation Weak Manual Muscle Testing Posterior 1 Muscle Endurance (Seconds) 1 Number of Quick Contractions In 10 2 Seconds Comments Pelvic Floor Comments flickering contraction and difficult time relaxing after PT-OP-Q Treatments Start: 08/05/22 14:57 Freq: Status: Active Protocol: Document 09/21/22 12:57 AMB (Rec: 09/21/22 13:49 AMB [id number]) Therapeutic Exercises Sitting Exercises long holds Sitting Exercise Name gentle roll in roll out Sitting Exercise Name red t band, contract pelvic floor Reps/Minutes 2x10 Comments with cues for breath Standing Exercises long holds/quick flicks Standing Exercise Name breathe with standing Reps/Minutes 10 Manual Therapy Treatment Taping abdomen Comments for diastasis PT-OP-T Assessment and Plan Start: 08/05/22 14:57 Freq: Status: Active Protocol: Document 09/21/22 12:57 AMB (Rec: 09/21/22 13:49 AMB [id number]) Physical Therapy Assessment Goals Dyspareunia Senior Living Goal (LTG) Miesha will engage in the intercourse of her choice with 1/10 pain or less. LTG Duration 12 weeks Two Impairment Bowel movements Short Term Goal (STG) Miesha will improve the consistency of her bowel movements to 2-3 on the bristol stool scale. STG Duration 4 weeks Magnetic Prospecting Supervisor Goal (LTG) Miesha will report no greater than 2/10 pain with bowel movements. LTG Duration 8 weeks One Impairment Stress urinary incontinence Short Term Goal (STG) Miesha will be independent with a HEP to help improve her pelvic floor strength. STG Duration 4 weeks Magnetic Prospecting Supervisor Goal (LTG) Miesha will cough without leaking urine. LTG Duration 8 weeks Assessment Summary Assessment Pain continues to improve, has noticed mild leaking with sneezing. Tolerated strengthening exercises, cues to make sure she relaxes between reps to make sure pain doesn't return with strengthening. Physical Therapy Plan Frequency and Duration Frequency of Treatment 1x/Week Duration of treatment (weeks) 12 Plan of Care Start Date 08/09/22 Plan of Care End Date 11/01/22 Therapeutic Interventions Therapeutic Interventions Home Exercise Program,Manual Therapy,Neuromuscular Re- education,Self-Care/Home Management,Therapeutic Activities,Therapeutic Exercises Modalities Biofeedback,Cold Pack/Ice Massage,Electric Stimulation Next Visit Focus/Plan Next Note Type Treatment Note Next Visit Plan Manual to release pelvic floor muscles, sEMG for working on relaxing and strengthening pelvic floor muscles, work to reduce constipation
--- NOTE | 2022-09-28 16:00 | PT.OTN ---
Current Diagnoses Dyspareunia not due to a substance or known physiological condition (09/28/22) Other specified disorders of muscle (09/28/22) Stress incontinence (female) (male) (09/28/22) Rectocele (09/28/22) Physical Therapy Treatment Note PT-OP-A Visit Information Start: 08/05/22 14:57 Freq: Status: Active Protocol: Document 09/28/22 12:59 AMB (Rec: 09/28/22 13:42 AMB [id number]) Out-Patient Physical Therapy Visit Information Visit Information Visit Type Treatment Note Visit Start Time 13:00 Visit Stop Time 13:45 Total Visit Minutes 45 Visit Number 5 PT-OP-B Current Condition Start: 08/05/22 14:57 Freq: Status: Active Protocol: Document 08/09/22 13:08 AMB (Rec: 08/09/22 13:30 AMB [id number]) Current Condition History of Current Condition Onset Date May 2023 Current Complaints Pelvic pain, SHAW History of Current Condition Miesha has a long history of pelvic pain with urgency and felt that again after most recent time with intercourse for 3 days pain was present. Pain is worse after childbirth 3 months ago. Describes vaginal pressure. Chronic constipation. Pain after bowel movements, variable 30minutes-3 hours. [place] stool scale 1-2, daily bowel movements. Does have IBS with some fecal urgency but even with that has formed stools. Vaginal , did tear thinks second degree, some tenderness at scar. Overall hoping to work on pelvic floor pain with bowel movements and intercourse. Reports mild SHAW. Treatment Goals Patient/Caregiver Goals Reduce pelvic pain with intercourse and bowel movements. Personal Factors Other Personal Factors That May Effect Hx fibromyalgia, back pain, Therapy/Recovery neck pain, depression PT-OP-C Subjective Start: 08/05/22 14:57 Freq: Status: Active Protocol: Document 09/28/22 12:59 AMB (Rec: 09/28/22 13:42 AMB [id number]) OP-PT Subjective Patient Comments Patient Comments Doesn't think she's been leaking as much. No pain after sex. PT-OP-I Pelvic Floor Start: 08/05/22 14:57 Freq: Status: Active Protocol: Document 08/09/22 13:00 AMB (Rec: 08/09/22 15:58 AMB [id number]) Pelvic Floor Assessment Urine Pelvic Floor Surgery No Urinary Symptoms Urge Sensation,Pain Leakage Size Small Leakage Cause Cough,Sneeze Nocturia 2 Urine Pad Type Panty Liner Bowel Bowel Symptoms Constipation Bowel Movement Frequency 1/day [place] Stool Chart Type 1-7 1 Pelvic Clock Pelvic Clock 12-3 Hypertonic,Tenderness, Tightness Pelvic Clock Other mild tenderness over perineal scar Prolapse Uterine Prolapse Grade 1 Rectocele Grade 2 Contraction Ability Voluntary Contraction Weak Voluntary Relaxation Weak Manual Muscle Testing Posterior 1 Muscle Endurance (Seconds) 1 Number of Quick Contractions In 10 2 Seconds Comments Pelvic Floor Comments flickering contraction and difficult time relaxing after PT-OP-Q Treatments Start: 08/05/22 14:57 Freq: Status: Active Protocol: Document 09/28/22 12:59 AMB (Rec: 09/28/22 13:42 AMB [id number]) Therapeutic Exercises Supine Exercises bent leg fall out Reps/Minutes 10 Comments cue TA and pelvic floor table top Reps/Minutes 10 Comments cue TA and pelvic floor- challenging [place] Exercises open book Reps/Minutes 2x10 clam Resistance yellow Reps/Minutes 2x10 Sitting Exercises roll in roll out Sitting Exercise Name red t band, contract pelvic floor Reps/Minutes 2x10 Comments with cues for breath Other Exercises bird dog Reps/Minutes 10 Manual Therapy Treatment Taping abdomen Type of Tape Kinesio Tape Comments for diastasis PT-OP-T Assessment and Plan Start: 08/05/22 14:57 Freq: Status: Active Protocol: Document 09/28/22 12:59 AMB (Rec: 09/28/22 13:42 AMB [id number]) Physical Therapy Assessment Goals Dyspareunia Phosphoric Acid Supervisor Goal (LTG) Miesha will engage in the intercourse of her choice with 1/10 pain or less. LTG Duration 12 weeks Two Impairment Bowel movements Short Term Goal (STG) Miesha will improve the consistency of her bowel movements to 2-3 on the brist[place] stool scale. STG Duration 4 weeks Long-Term Goal (LTG) Miesha will report no greater than 2/10 pain with bowel movements. LTG Duration 8 weeks One Impairment Stress urinary incontinence Short Term Goal (STG) Miesha will be independent with a HEP to help improve her pelvic floor strength. STG Duration 4 weeks Phosphoric Acid Supervisor Goal (LTG) Miesha will cough without leaking urine. LTG Duration 8 weeks Assessment Summary Assessment Pain is improving, strengthening is going well, will need to to add in strength training to progress. Physical Therapy Plan Frequency and Duration Frequency of Treatment 1x/Week Duration of treatment (weeks) 12 Plan of Care Start Date 08/09/22 Plan of Care End Date 11/01/22 Therapeutic Interventions Therapeutic Interventions Home Exercise Program,Manual Therapy,Neuromuscular Re- education,Self-Care/Home Management,Therapeutic Activities,Therapeutic Exercises Modalities Biofeedback,Cold Pack/Ice Massage,Electric Stimulation Next Visit Focus/Plan Next Note Type Treatment Note Next Visit Plan Manual to release pelvic floor muscles, sEMG for working on relaxing and strengthening pelvic floor muscles, work to reduce constipation
--- NOTE | 2022-10-07 13:50 | PT.OTN ---
Current Diagnoses Dyspareunia not due to a substance or known physiological condition (10/07/22) Other specified disorders of muscle (10/07/22) Stress incontinence (female) (male) (10/07/22) Rectocele (10/07/22) Physical Therapy Treatment Note PT-OP-A Visit Information Start: 08/05/22 14:57 Freq: Status: Active Protocol: Document 10/07/22 13:00 AMB (Rec: 10/07/22 13:50 AMB [id number]) Out-Patient Physical Therapy Visit Information Visit Information Visit Type Treatment Note Visit Start Time 13:00 Visit Stop Time 13:45 Total Visit Minutes 45 Visit Number 6 PT-OP-B Current Condition Start: 08/05/22 14:57 Freq: Status: Active Protocol: Document 08/09/22 13:08 AMB (Rec: 08/09/22 13:30 AMB [id number]) Current Condition History of Current Condition Onset Date May 2023 Current Complaints Pelvic pain, SHAW History of Current Condition Miesha has a long history of pelvic pain with urgency and felt that again after most recent time with intercourse for 3 days pain was present. Pain is worse after childbirth 3 months ago. Describes vaginal pressure. Chronic constipation. Pain after bowel movements, variable 30minutes-3 hours. [place] stool scale 1-2, daily bowel movements. Does have IBS with some fecal urgency but even with that has formed stools. Vaginal , did tear thinks second degree, some tenderness at scar. Overall hoping to work on pelvic floor pain with bowel movements and intercourse. Reports mild SHAW. Treatment Goals Patient/Caregiver Goals Reduce pelvic pain with intercourse and bowel movements. Personal Factors Other Personal Factors That May Effect Hx fibromyalgia, back pain, Therapy/Recovery neck pain, depression PT-OP-C Subjective Start: 08/05/22 14:57 Freq: Status: Active Protocol: Document 10/07/22 13:00 AMB (Rec: 10/07/22 13:50 AMB [id number]) OP-PT Subjective Patient Comments Patient Comments Sneezing did cause a leak today, no pain with intercourse PT-OP-I Pelvic Floor Start: 08/05/22 14:57 Freq: Status: Active Protocol: Document 08/09/22 13:00 AMB (Rec: 08/09/22 15:58 AMB [id number]) Pelvic Floor Assessment Urine Pelvic Floor Surgery No Urinary Symptoms Urge Sensation,Pain Leakage Size Small Leakage Cause Cough,Sneeze Nocturia 2 Urine Pad Type Panty Liner Bowel Bowel Symptoms Constipation Bowel Movement Frequency 1/day [place] Stool Chart Type 1-7 1 Pelvic Clock Pelvic Clock 12-3 Hypertonic,Tenderness, Tightness Pelvic Clock Other mild tenderness over perineal scar Prolapse Uterine Prolapse Grade 1 Rectocele Grade 2 Contraction Ability Voluntary Contraction Weak Voluntary Relaxation Weak Manual Muscle Testing Posterior 1 Muscle Endurance (Seconds) 1 Number of Quick Contractions In 10 2 Seconds Comments Pelvic Floor Comments flickering contraction and difficult time relaxing after PT-OP-Q Treatments Start: 08/05/22 14:57 Freq: Status: Active Protocol: Document 10/07/22 13:00 AMB (Rec: 10/07/22 13:50 AMB [id number]) Therapeutic Exercises Supine Exercises table top Reps/Minutes 10 Comments cue TA and pelvic floor- challenging Standing Exercises shoulder flexion Resistance 2# Reps/Minutes 2x10 Comments cue pelvic floor squats Standing Exercise Name 3# Reps/Minutes 10 Comments cue pelvic floor long holds/quick flicks Standing Exercise Name breathe with standing Reps/Minutes 10 Other Exercises bird dog Reps/Minutes 10 PT-OP-T Assessment and Plan Start: 08/05/22 14:57 Freq: Status: Active Protocol: Document 10/07/22 13:00 AMB (Rec: 10/07/22 13:50 AMB [id number]) Physical Therapy Assessment Goals Dyspareunia Coating Machine Operator Goal (LTG) Miesha will engage in the intercourse of her choice with 1/10 pain or less. LTG Duration 12 weeks Two Impairment Bowel movements Short Term Goal (STG) Miesha will improve the consistency of her bowel movements to 2-3 on the bristol stool scale. STG Duration 4 weeks Skilled Nursing Goal (LTG) Miesha will report no greater than 2/10 pain with bowel movements. LTG Duration 8 weeks One Impairment Stress urinary incontinence Short Term Goal (STG) Miesha will be independent with a HEP to help improve her pelvic floor strength. STG Duration 4 weeks Coating Machine Operator Goal (LTG) Miesha will cough without leaking urine. LTG Duration 8 weeks Assessment Summary Assessment Pt tolerated lifting without an increase in pain or leaking . Is going to get back to exercise after her prolonged illness and then will re- evalutate pelvic floor needs at that point. Physical Therapy Plan Frequency and Duration Frequency of Treatment 1x/Week Duration of treatment (weeks) 12 Plan of Care Start Date 08/09/22 Plan of Care End Date 11/01/22 Therapeutic Interventions Therapeutic Interventions Home Exercise Program,Manual Therapy,Neuromuscular Re- education,Self-Care/Home Management,Therapeutic Activities,Therapeutic Exercises Modalities Biofeedback,Cold Pack/Ice Massage,Electric Stimulation
--- NOTE | 2022-10-21 16:00 | PT.OTN ---
Current Diagnoses Dyspareunia not due to a substance or known physiological condition (10/21/22) Other specified disorders of muscle (10/21/22) Stress incontinence (female) (male) (10/21/22) Rectocele (10/21/22) Physical Therapy Treatment Note PT-OP-A Visit Information Start: 08/05/22 14:57 Freq: Status: Active Protocol: Document 10/21/22 12:51 AMB (Rec: 10/21/22 13:38 AMB [id number]) Out-Patient Physical Therapy Visit Information Visit Information Visit Type Treatment Note Visit Start Time 13:00 Visit Stop Time 13:45 Total Visit Minutes 45 Visit Number 7 PT-OP-B Current Condition Start: 08/05/22 14:57 Freq: Status: Active Protocol: Document 08/09/22 13:08 AMB (Rec: 08/09/22 13:30 AMB [id number]) Current Condition History of Current Condition Onset Date May 2023 Current Complaints Pelvic pain, SHAW History of Current Condition Miesha has a long history of pelvic pain with urgency and felt that again after most recent time with intercourse for 3 days pain was present. Pain is worse after childbirth 3 months ago. Describes vaginal pressure. Chronic constipation. Pain after bowel movements, variable 30minutes-3 hours. [place] stool scale 1-2, daily bowel movements. Does have IBS with some fecal urgency but even with that has formed stools. Vaginal , did tear thinks second degree, some tenderness at scar. Overall hoping to work on pelvic floor pain with bowel movements and intercourse. Reports mild SHAW. Treatment Goals Patient/Caregiver Goals Reduce pelvic pain with intercourse and bowel movements. Personal Factors Other Personal Factors That May Effect Hx fibromyalgia, back pain, Therapy/Recovery neck pain, depression PT-OP-C Subjective Start: 08/05/22 14:57 Freq: Status: Active Protocol: Document 10/21/22 12:51 AMB (Rec: 10/21/22 13:38 AMB [id number]) OP-PT Subjective Patient Comments Patient Comments Pt reports leaking after last visit. Has tried elliptical and weight lifting and did notice more pain with bowel movements. PT-OP-I Pelvic Floor Start: 08/05/22 14:57 Freq: Status: Active Protocol: Document 08/09/22 13:00 AMB (Rec: 08/09/22 15:58 AMB [id number]) Pelvic Floor Assessment Urine Pelvic Floor Surgery No Urinary Symptoms Urge Sensation,Pain Leakage Size Small Leakage Cause Cough,Sneeze Nocturia 2 Urine Pad Type Panty Liner Bowel Bowel Symptoms Constipation Bowel Movement Frequency 1/day [place] Stool Chart Type 1-7 1 Pelvic Clock Pelvic Clock 12-3 Hypertonic,Tenderness, Tightness Pelvic Clock Other mild tenderness over perineal scar Prolapse Uterine Prolapse Grade 1 Rectocele Grade 2 Contraction Ability Voluntary Contraction Weak Voluntary Relaxation Weak Manual Muscle Testing Posterior 1 Muscle Endurance (Seconds) 1 Number of Quick Contractions In 10 2 Seconds Comments Pelvic Floor Comments flickering contraction and difficult time relaxing after PT-OP-Q Treatments Start: 08/05/22 14:57 Freq: Status: Active Protocol: Document 10/21/22 12:51 AMB (Rec: 10/21/22 13:38 AMB [id number]) Therapeutic Exercises Sitting Exercises 65cm ball Sitting Exercise Name march, LAQ, pelvic circles. Reps/Minutes 30cm roll in roll out Sitting Exercise Name red t band, contract pelvic floor Reps/Minutes 2x10 Comments with cues for breath Standing Exercises squats Standing Exercise Name 3# Reps/Minutes 10 Comments cue pelvic floor Manual Therapy Treatment Soft Tissue Mobilization levator ani Mobilization Type Sustained Pressure,Trigger Point Release Intensity/Depth Moderate Body Position Hooklying Comments self treatment with balls, rolling miracle ball PT-OP-T Assessment and Plan Start: 08/05/22 14:57 Freq: Status: Active Protocol: Document 10/21/22 12:51 AMB (Rec: 10/21/22 13:38 AMB [id number]) Physical Therapy Assessment Goals Dyspareunia [facility]ci Goal (LTG) Miesha will engage in the intercourse of her choice with 1/10 pain or less. LTG Duration 12 weeks Two Impairment Bowel movements Short Term Goal (STG) Miesha will improve the consistency of her bowel movements to 2-3 on the bristol stool scale. STG Duration 4 weeks Surgical Pathologist Goal (LTG) Miesha will report no greater than 2/10 pain with bowel movements. LTG Duration 8 weeks One Impairment Stress urinary incontinence Short Term Goal (STG) Miesha will be independent with a HEP to help improve her pelvic floor strength. STG Duration 4 weeks Fci Goal (LTG) Miesha will cough without leaking urine. LTG Duration 8 weeks Assessment Summary Assessment Miesha had an increase in sx with an increase in exercise, given options for self release externally with ball and to back of on intensity of exercise for right now, then further assess increase in sx. Physical Therapy Plan Frequency and Duration Frequency of Treatment 1x/Week Duration of treatment (weeks) 12 Plan of Care Start Date 08/09/22 Plan of Care End Date 11/01/22 Therapeutic Interventions Therapeutic Interventions Home Exercise Program,Manual Therapy,Neuromuscular Re- education,Self-Care/Home Management,Therapeutic Activities,Therapeutic Exercises Modalities Biofeedback,Cold Pack/Ice Massage,Electric Stimulation Next Visit Focus/Plan Next Note Type Treatment Note Next Visit Plan Manual to release pelvic floor muscles, sEMG for working on relaxing and strengthening pelvic floor muscles, work to reduce constipation
--- NOTE | 2022-10-31 16:09 | PT.OTN ---
Current Diagnoses Dyspareunia not due to a substance or known physiological condition (10/31/22) Other specified disorders of muscle (10/31/22) Stress incontinence (female) (male) (10/31/22) Rectocele (10/31/22) Physical Therapy Treatment Note PT-OP-A Visit Information Start: 08/05/22 14:57 Freq: Status: Active Protocol: Document 10/31/22 13:31 AMB (Rec: 10/31/22 14:30 AMB [id number]) Out-Patient Physical Therapy Visit Information Visit Information Visit Type Treatment Note Visit Start Time 13:30 Visit Stop Time 14:15 Total Visit Minutes 45 Visit Number 8 PT-OP-B Current Condition Start: 08/05/22 14:57 Freq: Status: Active Protocol: Document 08/09/22 13:08 AMB (Rec: 08/09/22 13:30 AMB [id number]) Current Condition History of Current Condition Onset Date May 2023 Current Complaints Pelvic pain, SHAW History of Current Condition Miesha has a long history of pelvic pain with urgency and felt that again after most recent time with intercourse for 3 days pain was present. Pain is worse after childbirth 3 months ago. Describes vaginal pressure. Chronic constipation. Pain after bowel movements, variable 30minutes-3 hours. [place] stool scale 1-2, daily bowel movements. Does have IBS with some fecal urgency but even with that has formed stools. Vaginal , did tear thinks second degree, some tenderness at scar. Overall hoping to work on pelvic floor pain with bowel movements and intercourse. Reports mild SHAW. Treatment Goals Patient/Caregiver Goals Reduce pelvic pain with intercourse and bowel movements. Personal Factors Other Personal Factors That May Effect Hx fibromyalgia, back pain, Therapy/Recovery neck pain, depression PT-OP-C Subjective Start: 08/05/22 14:57 Freq: Status: Active Protocol: Document 10/31/22 13:31 AMB (Rec: 10/31/22 14:30 AMB [id number]) OP-PT Subjective Patient Comments Patient Comments Pt thinks she has recovered from her last flare up, has had a couple of leaks. Continues to have constipation issues. PT-OP-I Pelvic Floor Start: 08/05/22 14:57 Freq: Status: Active Protocol: Document 08/09/22 13:00 AMB (Rec: 08/09/22 15:58 AMB [id number]) Pelvic Floor Assessment Urine Pelvic Floor Surgery No Urinary Symptoms Urge Sensation,Pain Leakage Size Small Leakage Cause Cough,Sneeze Nocturia 2 Urine Pad Type Panty Liner Bowel Bowel Symptoms Constipation Bowel Movement Frequency 1/day [place] Stool Chart Type 1-7 1 Pelvic Clock Pelvic Clock 12-3 Hypertonic,Tenderness, Tightness Pelvic Clock Other mild tenderness over perineal scar Prolapse Uterine Prolapse Grade 1 Rectocele Grade 2 Contraction Ability Voluntary Contraction Weak Voluntary Relaxation Weak Manual Muscle Testing Posterior 1 Muscle Endurance (Seconds) 1 Number of Quick Contractions In 10 2 Seconds Comments Pelvic Floor Comments flickering contraction and difficult time relaxing after PT-OP-Q Treatments Start: 08/05/22 14:57 Freq: Status: Active Protocol: Document 10/31/22 13:31 AMB (Rec: 10/31/22 14:30 AMB [id number]) Therapeutic Exercises Supine Exercises table top Reps/Minutes 10 Comments cue TA and pelvic floor- challenging Sitting Exercises 65cm ball Sitting Exercise Name march, LAQ, pelvic circles. Reps/Minutes 30cm Standing Exercises squats Standing Exercise Name 10# Reps/Minutes 10 Comments cue pelvic floor PT-OP-T Assessment and Plan Start: 08/05/22 14:57 Freq: Status: Active Protocol: Document 10/31/22 13:31 AMB (Rec: 10/31/22 14:30 AMB [id number]) Physical Therapy Assessment Goals Dyspareunia Shelter Goal (LTG) Miesha will engage in the intercourse of her choice with 1/10 pain or less. LTG Duration MET Two Impairment Bowel movements Short Term Goal (STG) Miesha will improve the consistency of her bowel movements to 2-3 on the brist[place] stool scale. STG Duration 4 weeks Shelter Goal (LTG) Miesha will report no greater than 2/10 pain with bowel movements. LTG Duration MET One Impairment Stress urinary incontinence Short Term Goal (STG) Miesha will be independent with a HEP to help improve her pelvic floor strength. STG Duration 4 weeks Peer Counselor Goal (LTG) Miesha will cough without leaking urine. LTG Duration MET Assessment Summary Assessment Miesha's overall pain is better, but has had difficulty with incorporating more exercises into her routine without rebound pain and leaking. Both pain with intercourse and bowel movements have improved well, but needs to be careful with progression, as has had a couple of setbacks with pain. Physical Therapy Plan Frequency and Duration Frequency of Treatment 1x/Week Duration of treatment (weeks) 10 Plan of Care Start Date 10/31/22 Plan of Care End Date 01/09/23 Therapeutic Interventions Therapeutic Interventions Home Exercise Program,Manual Therapy,Neuromuscular Re- education,Self-Care/Home Management,Therapeutic Activities,Therapeutic Exercises Modalities Biofeedback,Cold Pack/Ice Massage,Electric Stimulation Next Visit Focus/Plan Next Note Type Treatment Note Next Visit Plan Manual to release pelvic floor muscles, sEMG for working on relaxing and strengthening pelvic floor muscles, work to reduce constipation
--- NOTE | 2022-10-31 16:09 | PT.OPPOC ---
Physical, Occupational & Speech Therapy At [facility] Current Diagnoses Dyspareunia not due to a substance or known physiological condition (10/31/22) Other specified disorders of muscle (10/31/22) Stress incontinence (female) (male) (10/31/22) Rectocele (10/31/22) Visit Care Team Role Provider Type [place] Attending Provider Advanced Low Vision Therapist Family Provider Primary Care Provider Referring Provider Specialty: Medical Address: [address] [place] [address], [facility] Email: [email or web address] Plan Of Care PT-OP-T Assessment and Plan Start: 08/05/22 14:57 Freq: Status: Active Protocol: Document 10/31/22 13:31 AMB (Rec: 10/31/22 14:30 AMB [id number]) Physical Therapy Assessment Goals Dyspareunia Tile [place] Goal (LTG) Miesha will engage in the intercourse of her choice with 1/10 pain or less. LTG Duration MET Two Impairment Bowel movements Short Term Goal (STG) Miesha will improve the consistency of her bowel movements to 2-3 on the bristol stool scale. STG Duration 4 weeks Tile Mason Goal (LTG) Miesha will report no greater than 2/10 pain with bowel movements. LTG Duration MET One Impairment Stress urinary incontinence Short Term Goal (STG) Miesha will be independent with a HEP to help improve her pelvic floor strength. STG Duration 4 weeks Tile Mason Goal (LTG) Miesha will cough without leaking urine. LTG Duration MET Assessment Summary Assessment Miesha's overall pain is better, but has had difficulty with incorporating more exercises into her routine without rebound pain and leaking. Both pain with intercourse and bowel movements have improved well, but needs to be careful with progression, as has had a couple of setbacks with pain. Physical Therapy Plan Frequency and Duration Frequency of Treatment 1x/Week Duration of treatment (weeks) 10 Plan of Care Start Date 10/31/22 Plan of Care End Date 01/09/23 Therapeutic Interventions Therapeutic Interventions Home Exercise Program,Manual Therapy,Neuromuscular Re- education,Self-Care/Home Management,Therapeutic Activities,Therapeutic Exercises Modalities Biofeedback,Cold Pack/Ice Massage,Electric Stimulation Next Visit Focus/Plan Next Note Type Treatment Note Next Visit Plan Manual to release pelvic floor muscles, sEMG for working on relaxing and strengthening pelvic floor muscles, work to reduce constipation Plan of Care Dates Plan of Care Start Date 10/31/22 Plan of Care End Date 01/09/23 Electronically Signed by: Maris Lawrence, PT 10/31/22 [id number] If you are in agreement with this Plan of Care, please return a signed and dated copy. I have reviewed this Plan of Care and certify that the skilled therapy services above are required to meet the patient?s needs. Physician Signature Date Printed Name and Credentials Clinical Instructor Signature Printed Name and Credentials
--- NOTE | 2022-11-11 13:42 | PT.OTN ---
Current Diagnoses Dyspareunia not due to a substance or known physiological condition (11/11/22) Other specified disorders of muscle (11/11/22) Stress incontinence (female) (male) (11/11/22) Rectocele (11/11/22) Physical Therapy Treatment Note PT-OP-A Visit Information Start: 08/05/22 14:57 Freq: Status: Active Protocol: Document 11/11/22 13:35 AMB (Rec: 11/11/22 14:32 AMB [id number]) Out-Patient Physical Therapy Visit Information Visit Information Visit Type Treatment Note Visit Start Time 13:30 Visit Stop Time 14:15 Total Visit Minutes 45 Visit Number 9 PT-OP-B Current Condition Start: 08/05/22 14:57 Freq: Status: Active Protocol: Document 08/09/22 13:08 AMB (Rec: 08/09/22 13:30 AMB [id number]) Current Condition History of Current Condition Onset Date May 2023 Current Complaints Pelvic pain, SHAW History of Current Condition Miesha has a long history of pelvic pain with urgency and felt that again after most recent time with intercourse for 3 days pain was present. Pain is worse after childbirth 3 months ago. Describes vaginal pressure. Chronic constipation. Pain after bowel movements, variable 30minutes-3 hours. [place] stool scale 1-2, daily bowel movements. Does have IBS with some fecal urgency but even with that has formed stools. Vaginal , did tear thinks second degree, some tenderness at scar. Overall hoping to work on pelvic floor pain with bowel movements and intercourse. Reports mild SHAW. Treatment Goals Patient/Caregiver Goals Reduce pelvic pain with intercourse and bowel movements. Personal Factors Other Personal Factors That May Effect Hx fibromyalgia, back pain, Therapy/Recovery neck pain, depression PT-OP-C Subjective Start: 08/05/22 14:57 Freq: Status: Active Protocol: Document 11/11/22 13:35 AMB (Rec: 11/11/22 14:32 AMB [id number]) OP-PT Subjective Patient Comments Patient Comments Pt reports PT-OP-I Pelvic Floor Start: 08/05/22 14:57 Freq: Status: Active Protocol: Document 08/09/22 13:00 AMB (Rec: 08/09/22 15:58 AMB [id number]) Pelvic Floor Assessment Urine Pelvic Floor Surgery No Urinary Symptoms Urge Sensation,Pain Leakage Size Small Leakage Cause Cough,Sneeze Nocturia 2 Urine Pad Type Panty Liner Bowel Bowel Symptoms Constipation Bowel Movement Frequency 1/day [place] Stool Chart Type 1-7 1 Pelvic Clock Pelvic Clock 12-3 Hypertonic,Tenderness, Tightness Pelvic Clock Other mild tenderness over perineal scar Prolapse Uterine Prolapse Grade 1 Rectocele Grade 2 Contraction Ability Voluntary Contraction Weak Voluntary Relaxation Weak Manual Muscle Testing Posterior 1 Muscle Endurance (Seconds) 1 Number of Quick Contractions In 10 2 Seconds Comments Pelvic Floor Comments flickering contraction and difficult time relaxing after PT-OP-Q Treatments Start: 08/05/22 14:57 Freq: Status: Active Protocol: Document 11/11/22 13:35 AMB (Rec: 12/01/22 13:40 AMB [id number]) Gym Equipment Shuttle Recovery plyos Details 50# Reps/Time 5 min Shuttle Rebound 1 Reps/Duration 10 min Comments with focus on controlling pelvic floor with increasing perturbation Therapeutic Exercises Sitting Exercises 65cm ball Sitting Exercise Name march, LAQ, pelvic circles. Reps/Minutes 30cm Standing Exercises lunges Reps/Minutes 10 Comments cue pelvic floor and breath squats Standing Exercise Name 10# Reps/Minutes 10 Comments cue pelvic floor PT-OP-T Assessment and Plan Start: 08/05/22 14:57 Freq: Status: Active Protocol: Document 11/11/22 13:35 AMB (Rec: 11/11/22 14:32 AMB [id number]) Physical Therapy Assessment Goals Dyspareunia Shelter Goal (LTG) Miesha will engage in the intercourse of her choice with 1/10 pain or less. LTG Duration MET Two Impairment Bowel movements Short Term Goal (STG) Miesha will improve the consistency of her bowel movements to 2-3 on the [place]ist[place] stool scale. STG Duration 4 weeks Shelter Goal (LTG) Miesha will report no greater than 2/10 pain with bowel movements. LTG Duration MET One Impairment Stress urinary incontinence Short Term Goal (STG) Miesha will be independent with a HEP to help improve her pelvic floor strength. STG Duration 4 weeks Shelter Goal (LTG) Miesha will cough without leaking urine. LTG Duration MET Assessment Summary Assessment Miesha tolerated increase in plyometric (gentle) exercise today with instruction of how ot progress over the next 3 weeks. Pt continues to notice leaking with heavy sneeze and to have questions with how to return to higher level exercise. Physical Therapy Plan Frequency and Duration Frequency of Treatment 1x/Week Duration of treatment (weeks) 10 Plan of Care Start Date 10/31/22 Plan of Care End Date 01/09/23 Therapeutic Interventions Therapeutic Interventions Home Exercise Program,Manual Therapy,Neuromuscular Re- education,Self-Care/Home Management,Therapeutic Activities,Therapeutic Exercises Modalities Biofeedback,Cold Pack/Ice Massage,Electric Stimulation Next Visit Focus/Plan Next Note Type Treatment Note Next Visit Plan Manual to release pelvic floor muscles, sEMG for working on relaxing and strengthening pelvic floor muscles, work to reduce constipation
--- NOTE | 2022-12-20 15:54 | PT.OTN ---
Current Diagnoses Dyspareunia not due to a substance or known physiological condition (12/20/22) Other specified disorders of muscle (12/20/22) Stress incontinence (female) (male) (12/20/22) Rectocele (12/20/22) Physical Therapy Treatment Note PT-OP-A Visit Information Start: 08/05/22 14:57 Freq: Status: Active Protocol: Document 12/20/22 11:58 AMB (Rec: 12/20/22 12:48 AMB [id number]) Out-Patient Physical Therapy Visit Information Visit Information Visit Type Treatment Note Visit Start Time 12:00 Visit Stop Time 12:45 Total Visit Minutes 45 Visit Number 10 PT-OP-B Current Condition Start: 08/05/22 14:57 Freq: Status: Active Protocol: Document 08/09/22 13:08 AMB (Rec: 08/09/22 13:30 AMB [id number]) Current Condition History of Current Condition Onset Date May 2023 Current Complaints Pelvic pain, SHAW History of Current Condition Miesha has a long history of pelvic pain with urgency and felt that again after most recent time with intercourse for 3 days pain was present. Pain is worse after childbirth 3 months ago. Describes vaginal pressure. Chronic constipation. Pain after bowel movements, variable 30minutes-3 hours. [place] stool scale 1-2, daily bowel movements. Does have IBS with some fecal urgency but even with that has formed stools. Vaginal , did tear thinks second degree, some tenderness at scar. Overall hoping to work on pelvic floor pain with bowel movements and intercourse. Reports mild SHAW. Treatment Goals Patient/Caregiver Goals Reduce pelvic pain with intercourse and bowel movements. Personal Factors Other Personal Factors That May Effect Hx fibromyalgia, back pain, Therapy/Recovery neck pain, depression PT-OP-C Subjective Start: 08/05/22 14:57 Freq: Status: Active Protocol: Document 12/20/22 11:58 AMB (Rec: 12/20/22 12:48 AMB [id number]) OP-PT Subjective Patient Comments Patient Comments Pt overall is having some leaking, but more concerned with pain radiating into tailbone. PT-OP-I Pelvic Floor Start: 08/05/22 14:57 Freq: Status: Active Protocol: Document 08/09/22 13:00 AMB (Rec: 08/09/22 15:58 AMB [id number]) Pelvic Floor Assessment Urine Pelvic Floor Surgery No Urinary Symptoms Urge Sensation,Pain Leakage Size Small Leakage Cause Cough,Sneeze Nocturia 2 Urine Pad Type Panty Liner Bowel Bowel Symptoms Constipation Bowel Movement Frequency 1/day [place] Stool Chart Type 1-7 1 Pelvic Clock Pelvic Clock 12-3 Hypertonic,Tenderness, Tightness Pelvic Clock Other mild tenderness over perineal scar Prolapse Uterine Prolapse Grade 1 Rectocele Grade 2 Contraction Ability Voluntary Contraction Weak Voluntary Relaxation Weak Manual Muscle Testing Posterior 1 Muscle Endurance (Seconds) 1 Number of Quick Contractions In 10 2 Seconds Comments Pelvic Floor Comments flickering contraction and difficult time relaxing after PT-OP-Q Treatments Start: 08/05/22 14:57 Freq: Status: Active Protocol: Document 12/20/22 14:15 AMB (Rec: 12/20/22 14:18 AMB [id number]) Therapeutic Exercises Supine Exercises hip flexor stretch Reps/Minutes 30x2 double knee to chest Reps/Minutes 30x2 table top Reps/Minutes 10 Comments cue TA and pelvic floor- challenging Standing Exercises hip flexor stretch Standing Exercise Name modified kneeling Reps/Minutes 30x2 Comments cue post pelvic tilt Manual Therapy Treatment Soft Tissue Mobilization hip flexors Body Location R>L Intensity/Depth Superficial Body Position Supine Comments radiates into coccyx PT-OP-T Assessment and Plan Start: 08/05/22 14:57 Freq: Status: Active Protocol: Document 12/20/22 11:58 AMB (Rec: 12/20/22 12:48 AMB [id number]) Physical Therapy Assessment Goals Dyspareunia Skilled Nursing Goal (LTG) Miesha will engage in the intercourse of her choice with 1/10 pain or less. LTG Duration MET Two Impairment Bowel movements Short Term Goal (STG) Miesha will improve the consistency of her bowel movements to 2-3 on the bristol stool scale. STG Duration 4 weeks Validation Technician Goal (LTG) Miesha will report no greater than 2/10 pain with bowel movements. LTG Duration MET One Impairment Stress urinary incontinence Short Term Goal (STG) Miesha will be independent with a HEP to help improve her pelvic floor strength. STG Duration 4 weeks Validation Technician Goal (LTG) Miesha will cough without leaking urine. LTG Duration MET Assessment Summary Assessment Occassional leakage, has been doing the elliptical. Maybe a little pelvic pain after walking. Did have significant tension in bilateral hip flexors worse on the R so instructed in hip flexor stretches. Physical Therapy Plan Frequency and Duration Frequency of Treatment 1x/Week Duration of treatment (weeks) 10 Plan of Care Start Date 10/31/22 Plan of Care End Date 01/09/23 Therapeutic Interventions Therapeutic Interventions Home Exercise Program,Manual Therapy,Neuromuscular Re- education,Self-Care/Home Management,Therapeutic Activities,Therapeutic Exercises Modalities Biofeedback,Cold Pack/Ice Massage,Electric Stimulation Next Visit Focus/Plan Next Note Type Treatment Note Next Visit Plan Manual to release pelvic floor muscles, sEMG for working on relaxing and strengthening pelvic floor muscles, work to reduce constipation
--- NOTE | 2023-01-03 14:00 | PT.OTN ---
Current Diagnoses Dyspareunia not due to a substance or known physiological condition (01/03/23) Other specified disorders of muscle (01/03/23) Stress incontinence (female) (male) (01/03/23) Rectocele (01/03/23) Physical Therapy Treatment Note PT-OP-A Visit Information Start: 08/05/22 14:57 Freq: Status: Active Protocol: Document 01/03/23 12:02 AMB (Rec: 01/03/23 12:51 AMB [id number]) Out-Patient Physical Therapy Visit Information Visit Information Visit Type Treatment Note Visit Start Time 12:00 Visit Stop Time 12:45 Total Visit Minutes 45 Visit Number 11 PT-OP-B Current Condition Start: 08/05/22 14:57 Freq: Status: Active Protocol: Document 08/09/22 13:08 AMB (Rec: 08/09/22 13:30 AMB [id number]) Current Condition History of Current Condition Onset Date May 2023 Current Complaints Pelvic pain, SHAW History of Current Condition Miesha has a long history of pelvic pain with urgency and felt that again after most recent time with intercourse for 3 days pain was present. Pain is worse after childbirth 3 months ago. Describes vaginal pressure. Chronic constipation. Pain after bowel movements, variable 30minutes-3 hours. [place] stool scale 1-2, daily bowel movements. Does have IBS with some fecal urgency but even with that has formed stools. Vaginal , did tear thinks second degree, some tenderness at scar. Overall hoping to work on pelvic floor pain with bowel movements and intercourse. Reports mild SHAW. Treatment Goals Patient/Caregiver Goals Reduce pelvic pain with intercourse and bowel movements. Personal Factors Other Personal Factors That May Effect Hx fibromyalgia, back pain, Therapy/Recovery neck pain, depression PT-OP-C Subjective Start: 08/05/22 14:57 Freq: Status: Active Protocol: Document 01/03/23 12:02 AMB (Rec: 01/03/23 12:51 AMB [id number]) OP-PT Subjective Patient Comments Patient Comments Pt continues to have low back into the SI, worst with sitting. Walking is fine, sitting is a problem PT-OP-I Pelvic Floor Start: 08/05/22 14:57 Freq: Status: Active Protocol: Document 08/09/22 13:00 AMB (Rec: 08/09/22 15:58 AMB [id number]) Pelvic Floor Assessment Urine Pelvic Floor Surgery No Urinary Symptoms Urge Sensation,Pain Leakage Size Small Leakage Cause Cough,Sneeze Nocturia 2 Urine Pad Type Panty Liner Bowel Bowel Symptoms Constipation Bowel Movement Frequency 1/day [place] Stool Chart Type 1-7 1 Pelvic Clock Pelvic Clock 12-3 Hypertonic,Tenderness, Tightness Pelvic Clock Other mild tenderness over perineal scar Prolapse Uterine Prolapse Grade 1 Rectocele Grade 2 Contraction Ability Voluntary Contraction Weak Voluntary Relaxation Weak Manual Muscle Testing Posterior 1 Muscle Endurance (Seconds) 1 Number of Quick Contractions In 10 2 Seconds Comments Pelvic Floor Comments flickering contraction and difficult time relaxing after PT-OP-Q Treatments Start: 08/05/22 14:57 Freq: Status: Active Protocol: Document 01/03/23 12:02 AMB (Rec: 01/03/23 12:51 AMB [id number]) Therapeutic Exercises Sidelying Exercises clam Reps/Minutes 10 Comments harder on the left Sitting Exercises 65cm ball Sitting Exercise Name march, LAQ, pelvic circles. Reps/Minutes 30cm Standing Exercises hip flexor stretch Standing Exercise Name modified kneeling Reps/Minutes 30x2 Comments cue post pelvic tilt Other Exercises happy baby Reps/Minutes 30x2 Manual Therapy Treatment Soft Tissue Mobilization hip flexors Body Location R>L Intensity/Depth Superficial Body Position Supine Comments radiates into coccyx PT-OP-T Assessment and Plan Start: 08/05/22 14:57 Freq: Status: Active Protocol: Document 01/03/23 12:02 AMB (Rec: 01/03/23 12:51 AMB [id number]) Physical Therapy Assessment Goals Dyspareunia Traffic Control Operator Goal (LTG) Miesha will engage in the intercourse of her choice with 1/10 pain or less. LTG Duration MET Two Impairment Bowel movements Short Term Goal (STG) iMesha will improve the consistency of her bowel movements to 2-3 on the bristol stool scale. STG Duration 4 weeks Senior Living Goal (LTG) Miesha will report no greater than 2/10 pain with bowel movements. LTG Duration MET One Impairment Stress urinary incontinence Short Term Goal (STG) Miesha will be independent with a HEP to help improve her pelvic floor strength. STG Duration MET Traffic Control Operator Goal (LTG) Miesha will cough without leaking urine. LTG Duration MET Assessment Summary Assessment Miesha feels ready for discharge. She has met the majority of her goals and does not have pain with defecation or intercourse at this time. She does continue to have SI and coccyx pain especially with extended sitting, this was her baseline before her but she has been instructed in a HEP for it. Physical Therapy Plan Frequency and Duration Frequency of Treatment 1x/Week Duration of treatment (weeks) 10 Plan of Care Start Date 10/31/22 Plan of Care End Date 01/09/23 Therapeutic Interventions Therapeutic Interventions Home Exercise Program,Manual Therapy,Neuromuscular Re- education,Self-Care/Home Management,Therapeutic Activities,Therapeutic Exercises Modalities Biofeedback,Cold Pack/Ice Massage,Electric Stimulation Next Visit Focus/Plan Next Note Type Treatment Note Next Visit Plan Manual to release pelvic floor muscles, sEMG for working on relaxing and strengthening pelvic floor muscles, work to reduce constipation
--- NOTE | 2023-01-11 09:29 | PT.OPDS ---
Current Diagnoses Dyspareunia not due to a substance or known physiological condition (01/03/23) Other specified disorders of muscle (01/03/23) Stress incontinence (female) (male) (01/03/23) Rectocele (01/03/23) Visit Care Team Role Provider Type [place] Attending Provider Advanced Firefighter Family Provider Primary Care Provider Referring Provider Specialty: Medical Address: [address] [place] [address], [facility] Email: [email or web address] Visit Number Visit Number 11 Discharge Summary PT-OP-B Current Condition Start: 08/05/22 14:57 Freq: Status: Active Protocol: Document 08/09/22 13:08 AMB (Rec: 08/09/22 13:30 AMB [id number]) Current Condition History of Current Condition Onset Date May 2023 Current Complaints Pelvic pain, SHAW History of Current Condition Miesha has a long history of pelvic pain with urgency and felt that again after most recent time with intercourse for 3 days pain was present. Pain is worse after childbirth 3 months ago. Describes vaginal pressure. Chronic constipation. Pain after bowel movements, variable 30minutes-3 hours. [place] stool scale 1-2, daily bowel movements. Does have IBS with some fecal urgency but even with that has formed stools. Vaginal , did tear thinks second degree, some tenderness at scar. Overall hoping to work on pelvic floor pain with bowel movements and intercourse. Reports mild SHAW. Treatment Goals Patient/Caregiver Goals Reduce pelvic pain with intercourse and bowel movements. Personal Factors Other Personal Factors That May Effect Hx fibromyalgia, back pain, Therapy/Recovery neck pain, depression PT-OP-C Subjective Start: 08/05/22 14:57 Freq: Status: Active Protocol: Document 01/03/23 12:02 AMB (Rec: 01/03/23 12:51 AMB [id number]) OP-PT Subjective Patient Comments Patient Comments Pt continues to have low back into the SI, worst with sitting. Walking is fine, sitting is a problem PT-OP-I Pelvic Floor Start: 08/05/22 14:57 Freq: Status: Active Protocol: Document 08/09/22 13:00 AMB (Rec: 08/09/22 15:58 AMB [id number]) Pelvic Floor Assessment Urine Pelvic Floor Surgery No Urinary Symptoms Urge Sensation,Pain Leakage Size Small Leakage Cause Cough,Sneeze Nocturia 2 Urine Pad Type Panty Liner Bowel Bowel Symptoms Constipation Bowel Movement Frequency 1/day [place] Stool Chart Type 1-7 1 Pelvic Clock Pelvic Clock 12-3 Hypertonic,Tenderness, Tightness Pelvic Clock Other mild tenderness over perineal scar Prolapse Uterine Prolapse Grade 1 Rectocele Grade 2 Contraction Ability Voluntary Contraction Weak Voluntary Relaxation Weak Manual Muscle Testing Posterior 1 Muscle Endurance (Seconds) 1 Number of Quick Contractions In 10 2 Seconds Comments Pelvic Floor Comments flickering contraction and difficult time relaxing after PT-OP-T Assessment and Plan Start: 08/05/22 14:57 Freq: Status: Active Protocol: Document 01/03/23 12:02 AMB (Rec: 01/03/23 12:51 [facility] [id number]) Physical Therapy Assessment Goals Dyspareunia [facility] Goal (LTG) Miesha will engage in the intercourse of her choice with 1/10 pain or less. LTG Duration MET Two Impairment Bowel movements Short Term Goal (STG) Miesha will improve the consistency of her bowel movements to 2-3 on the bristol stool scale. STG Duration 4 weeks Mcc Goal (LTG) Miesha will report no greater than 2/10 pain with bowel movements. LTG Duration MET One Impairment Stress urinary incontinence Short Term Goal (STG) Miesha will be independent with a HEP to help improve her pelvic floor strength. STG Duration MET Environmental Services Director Goal (LTG) Miesha will cough without leaking urine. LTG Duration MET Assessment Summary Assessment Miesha feels ready for discharge. She has met the majority of her goals and does not have pain with defecation or intercourse at this time. She does continue to have SI and coccyx pain especially with extended sitting, this was her baseline before her but she has been instructed in a HEP for it. Physical Therapy Plan Frequency and Duration Frequency of Treatment 1x/Week Duration of treatment (weeks) 10 Plan of Care Start Date 10/31/22 Plan of Care End Date 01/09/23 Therapeutic Interventions Therapeutic Interventions Home Exercise Program,Manual Therapy,Neuromuscular Re- education,Self-Care/Home Management,Therapeutic Activities,Therapeutic Exercises Modalities Biofeedback,Cold Pack/Ice Massage,Electric Stimulation Next Visit Focus/Plan Next Note Type Treatment Note Next Visit Plan Manual to release pelvic floor muscles, sEMG for working on relaxing and strengthening pelvic floor muscles, work to reduce constipation
== END 2023-01-11 12:33 | disposition home or self-care (01) ==
LOC: PHYS 12:00
PROVIDERS: Absent Provider Registered Nurse Diabetes Educator; Family Provider Registered Nurse Diabetes Educator; PCP Registered Nurse Diabetes Educator; Referring Provider Registered Nurse Diabetes Educator; Visit Provider Registered Nurse Diabetes Educator
DX: M62.89 Other specified disorders of muscle (principal); F52.6 Dyspareunia not due to a substance or known physiological condition; N81.6 Rectocele; N39.3 Stress incontinence (female) (male)
CPT/HCPCS: 97110; 97140; 97161